=== PATIENT | male | born 2000 | race Caucasian/White ===

== ENCOUNTER 2021-09-06 22:17 | Emergency (ER) | payer MEDICAID, SELFPAY ==
[2021-09-06 22:22] VITALS: BP 149/82; PULSE 96; RESP 18; TEMP 37.5; O2SAT 99
--- NOTE | 2021-09-06 22:29 | ED.DENTAL ---
HPI - Dental/Oral General Chief complaint: Dental/Oral Stated complaint: mouth pain Time Seen by Provider: 09/06/21 22:23 Source: patient Mode of arrival: ambulatory Limitations: no limitations History of Present Illness HPI Narrative: 20-year-old male presents to the emergency department for evaluation of worsening left upper dental pain and the pain. Patient states he went to the dental school yesterday and had dental work done. He states that during the procedure they did accidentally drill his lip. Patient does have a small injury to the mucosal membrane on the left lateral lower lip. No active bleeding. Minimal swelling. Patient is complaining of increased pain at the left upper molar. Patient does have some left-sided facial swelling. Patient denies any difficulty breathing or swallowing. Related Data Allergies Allergy/AdvReac Type Severity Reaction Status Date / Time acetaminophen Allergy Severe Unverified 10/21/08 14:15 Review of Systems Review of Systems: CONSTITUTIONAL: Denies fever, chills, or sweats. EYES: Denies visual changes, redness, or discharge. ENT: Worsening dental pain and facial swelling. CARDIOVASCULAR: Denies chest pain, palpitations, or edema. RESPIRATORY: Denies cough or dyspnea. GASTROINTESTINAL: Denies abdominal pain, nausea, vomiting, or diarrhea. GENITOURINARY: Denies dysuria or hematuria. SKIN: Denies rash or itching. MUSCULOSKELETAL: Denies back pain, joint pain, or myalgia. NEUROLOGIC: Denies headache, numbness, or weakness. Exam Narrative: APPEARANCE: Well appearing, no pain, no distress, well-nourished. HEAD: normocephalic, atraumatic. Minimal left-sided facial swelling EYES: PERRLA/EOMI, conjunctivae clear. NOSE: Normal no drainage THROAT and mouth: Pharynx clear, no exudate. No trismus. No dental abscess NECK: Supple. No adenopathy, no masses. RESPIRATORY: Airway patent, respirations nonlabored. Clear to auscultation bilaterally, no rales, rhonchi, wheezing. Course Course Emergency Course: Patient was started on Augmentin in the emergency department. Patient was encouraged to have close follow-up with the dental school. All questions and concerns were addressed. Patient was well-appearing at time of discharge Vital Signs Vital signs: Vital Signs Temperature 99.5 F 09/06/21 22:22 Pulse Rate 96 09/06/21 22:22 Respiratory Rate 18 09/06/21 22:22 Blood Pressure 149/82 H 09/06/21 22:22 Pulse Oximetry 99 09/06/21 22:22 Temperature 99.5 F 09/06/21 22:22 Pulse Rate 96 09/06/21 22:22 Respiratory Rate 18 09/06/21 22:22 Blood Pressure 149/82 H 09/06/21 22:22 Pulse Oximetry 99 09/06/21 22:22 Discharge Plan Discharge Clinical Impression: Toothache, Facial swelling Patient Disposition: Home, Self-Care Condition: Stable Instructions: Antibiotic Form, Toothache (ED) Additional Instructions: Ibuprofen for pain control. Antibiotic as directed until completed. You will need to return to the dental school to be reevaluated. If you have any worsening symptoms or if you have any questions or concerns then please call or return to the emergency department. Prescriptions: New amoxicillin-pot clavulanate 875-125 mg tablet 1 tablet PO Q12H Qty: 14 RF: 0 Follow-up/Referrals: Tara Euceda MD [Physician] -
[2021-09-06] MEDS: IBUPROFEN 400 MG TABLET PO (22:35)
[2021-09-06] MEDS: AMOXICILLIN/CLAVULANATE K 875-125 MG TAB 1 TABLET PO (22:35)
== END 2021-09-06 22:50 | disposition home or self-care (01) ==
LOC: ANHED 22:47
PROVIDERS: Emergency Provider Emergency Medicine; PCP Physician Assistant
DX: K08.89 Other specified disorders of teeth and supporting structures (principal); R22.0 Localized swelling, mass and lump, head
CPT/HCPCS: 99283; A9270

== ENCOUNTER 2022-03-17 22:11 | Emergency (ER) | payer OTHER, SELFPAY ==
[2022-03-17 22:10] VITALS: O2SAT 75
--- NOTE | 2022-03-17 22:45 | PC.NURSE ---
CPR initiated at 2207, no pulse detected Dr. Robles called TOD at 2245.
--- NOTE | 2022-03-17 22:57 | PC.NURSE ---
Pt came in per EMS for Ingestion of sodium Nitrite bottle of 500mg( unknown starting amount) with report that pt walked in, set bottle on table and told dad that I took this I tried for suicide and then reported he didn't feel good. Father called 911 and another family member called 911 and while waiting pt started acting loopy and weird. Pt arrival at 2205. Pt shipley in color, darin airway place DOUGH MOLDER and 18G IV in left AC DOUGH MOLDER. No medication given en route. (Approximate times) 2204, pt undressed, monitor applied, pt being bagged with darin airway at this time. 2205, color remains unchanged no pulse present 220 CPR initiated. 2208 EPI 1mg/10ml given in 18G LAC [address] Peralta 7.5 secured at lips 25cm, color change cap confirmed via RT, Bilateral equal clear lung sounds per RT, bags easily per RT. 2210 20Gauge right AC started by Mike RN , pt rhythm PEA, no pulse, CPR continued 2212 EPI per ACLS, no pulse, rhythm PEA, one amp Bicarb given IV. 4 Pads applied at this time to chest 5 CPR paused rhythm check, no pulse, PEA, CPR continued 2217 EPI IV given, Fluid bolus, NS started with pressure bag. CPR paused (approx 10 second after epi), PEA, CPR continued 2218 1 AMP of Bicarb given IV, CPR paused, Rhythm check no pulse, PEA, CPR continued. 2220 EPI IV given, Methylene blue chloride started 2221.30 CPR paused, rhythm no pulse PEA, CPR continued 2223 EPI IV given 2223.30 CPR paused, no pulse PEA, CPR continued 2225 Per RT SpO2 of 93% 2225.30 CPR paused, no pulse, PEA, CPR continued 2226.30 EPI IV given, Methylene blue completed. 2227.30 CPR Paused, no pulse, PEA, CPR continued. 2230 EPI given IV, 2230.30 CPR paused, no pulse, PEA, CPR continued 2232 1 AMP Bicard given IV, 2232.30 CPR paused, no pulse, PEA, CPR continued 2233.50 EPI IV given. 2234.5 CPR paused, no pulse, PEA, CPR continued. 2236 CPR paused, V-fib noted, pt defib at 200J, CPR continued 2237 EPI IV given 2239 CPR paused, PEA no pulse, CPR continued, SpO2 77% per RT. 2240 EPI given IV 2240.30 CPR paused, no pulse PEA, CPR continued 2242 H&Ts verbalized by staff, no new orders at this time from Providers 2243 CPR paused, asystole no pulse, CPR continued 2243.30 EPI given IV 2245 CPR paused, no pulse asystole, CPR discontinued. [address] Robles.
--- NOTE | 2022-03-17 22:57 | ED.GENADULT ---
HPI - General Adult General Chief complaint: Overdose Stated complaint: OD/SI RESP ARREST Source: RN notes reviewed History of Present Illness HPI narrative: Patient presents emergency department from home via EMS for overdose with sodium nitrite. History is per the patient's father as the patient had been intubated with a Chito airway prior to arrival father states the patient come in and place a bottle on a stable states he had taken the medication in attempt to commit suicide states the father then called 911 and taken the patient upstairs and the patient began to act funny when EMS arrived the patient was having shortness of breath and was intubated with a Chito airway in route. Upon arrival to the emergency department the patient lost his pulse and CPR was started Review of Systems Review of Systems: ROS unobtainable: Yes unobtainable due to endotracheal tube PMFSH Comments Unable to obtain past medical surgical family or social history secondary to intubation Exam Narrative: APPEARANCE: Lying in bed unresponsive to verbal and painful stimuli cyanotic in appearance HEENT: Normocephalic, atraumatic, orotracheal tube in place Eyes: Pulses fixed and dilated RESPIRATORY: No spontaneous breath sounds auscultated. Equal breath sounds with bag ventilation CARDIOVASCULAR: No spontaneous heart rate auscultated ABDOMINAL: Soft, nondistended MUSCULOSKELETAl: Distal cyanosis with no spontaneous motion of extremities NEURO: Unresponsive to verbal and painful stimuli SKIN:: Cool and dry Course Course Emergency Course: Patient with sodium nitrate overdose upon initial evaluation I contacted pharmacy and methylene blue made and sent to ED Poison control has been notified by nursing staff and recommended dose of methylene blue it had already been given prior to the recommendation Patient's time of 2245 Patient's father has been present throughout CPR he was initially brought back and elected to leave the room he was updated on the patient's Procedures Intubation Intubation #1: sedative: none (No medications given) Laryngoscope: fiber optic video scope Tube Size (cm): 7.5 Method of Intubation: orotracheal Number of Attempts: 1 Tube Secured Depth (cm): 25 Tube Secured Location: lips Tube Placement Confirmation: visualized tube passing through cords, equal breath sounds bilaterally, no breath sounds over epigastrium and confirmation by capnometry Patient Tolerated Procedure: well Intubation Complications: none Additional Comments: Patient intubated by Dr Mclain Discharge Plan Discharge Clinical Impression: Cardiopulmonary arrest, Overdose Patient Disposition: Condition: Follow-up/Referrals: Chapin,DARELL Abreu [Primary Care Provider] -
--- NOTE | 2022-03-18 07:40 | PC.NURSE ---
03/17/2022 2211 CODE CALLED 2216 POISON CONTROL NOTIFIED AT GIVEN. WILL CONTACT TOXICOLOGY. 2221: SARAH SU RESIDENT WITH TOXICOLOGY TEAM CALLED FROM [phone] TO GET MORE INFORMATION. IFORMATION GIVEN BY THIS RN. HE WILL CALL BACK AFTER HE RUNS THIS INFORMATION BY HIS FELLOW . 224: SARAH SU RESIDENT WITH TOXICOLOGY CALLED BACK AND SAID THAT YOU CAN HANG A 2ND METHYLENE BLUE, IT'S A SHOT IN THE DARK, AND PROBABLY WON'T WORK . SARAH ALSO STATED TELL THE TEAM THAT WE SEE THIS ALOT . 2245: TIME OF CALLED BY DR. MARLI BENTLEY. 2250: CALLED HS; KENNEDY Ma RN TO NOTIFY HER, BUT SHE WAS ALREADY IN THE FAMILY SERVICES ROOM WITH THIS FAMILY. 2309: [facility]; TERESITA FERRELL NOTIFIED OF THIS . 2339: [facility] MADE AWARE OF THIS , AND THAT HE IS CURRENTLY A CORONERS CASE. SPOKE WITH SAKINA,SHE GAVE REF#[id number]. 03/18/2022 0026: UTE WITH [facility] CALLED BACK AND MADE US AWARE THAT THIS PT IS A CANDIDATE FOR [employer]GAN DONATION. 0050: PT'S MOTHER TOOK ALL OF HIS PERSONAL BELONGINGS AND LEFT THIS ED. 0108: THIS BODY IS RELEASED BY ATTENDANCE SECRETARY. 0136: EDP DR. DONNA CALLES SPOKE WITH SARAH SU RESIDENT WITH TOXICOLOGY. THEN THIS CHARGE NURSE SPOKE WITH HIM. PT'S NAME AND GIVEN TO SARAH UPON HIS REQUEST. 0142: PT TAKEN TO [facility] [place]. 0155: [facility] NOTIFIED OF PT'S TIME TO [facility] [place]. 0429: MARY ANNE WITH [facility] CALLED AND MADE THIS ED AWARE OF PT'S FATHER WANTING VERIFICATION OF THIS PT BEING ON THE ORGAN DONATION REGISTRY. MARY ANNE STATED THAT THIS PT'S FATHER WOULD COME PICK IT UP FROM THIS ED AT SOME POINT TODAY. MARY ANNE GIVEN ED FAX NUMBER. MARY ANNE FAXED VERIFICATION TO THIS ED, AND WILL BE HELD AT THE ED CHARGE NURSES STATION FOR THE FATHER TO COME GET.
--- NOTE | 2022-03-18 09:44 | PC.NURSE ---
SHORTY Rodrigues, spoke with [facility]. They are to call Nataly, mother, for consent. This RN spoke with Jack (father) and Nataly (mother) and updated them on plan for removal of body. All parties agreeable and on same page. Jack Ware: cell# [phone] Nataly Ware: cell# [phone]
== END 2022-03-18 01:54 | disposition expired ==
PROVIDERS: Emergency Provider Emergency Medicine; PCP Physician Assistant
DX: T50.6X2A Poisoning by antidotes and chelating agents, intentional self-harm, initial encounter (principal); I46.8 Cardiac arrest due to other underlying condition
CPT/HCPCS: 31500; 92950; 99285; J0171; J7030